=== PATIENT | female | born 1960 | race Caucasian/White ===

== ENCOUNTER → 2017-09-26 | Outpatient (CLI) | payer BC | LOC: FIMAGING 10:41 | PROVIDERS: ATTEND Obstetrics & Gynecology | DX: Z12.31 Encounter for screening mammogram for malignant neoplasm of breast (principal); N95.0 Postmenopausal bleeding; Q51.3 Bicornate uterus; D25.9 Leiomyoma of uterus, unspecified | CPT/HCPCS: G0202 ==

== ENCOUNTER → 2019-01-07 | Outpatient (CLI) | payer BC | LOC: FIMAGING 14:00 | PROVIDERS: ATTEND Obstetrics & Gynecology | DX: Z12.31 Encounter for screening mammogram for malignant neoplasm of breast (principal) ==

== ENCOUNTER → 2019-01-30 | Outpatient (CLI) | payer BC | LOC: FIMAGING 12:56 | PROVIDERS: ATTEND Obstetrics & Gynecology | DX: N64.59 Other signs and symptoms in breast (principal) ==